=== PATIENT | male | born 1995 | race Caucasian/White ===

== ENCOUNTER 2018-01-19 19:00 | Emergency (ER) | payer OTHER ==
[~2018-01-19] VITALS: Ht 177.8 cm; Wt 104.3 kg
[~2018-01-19 19:00] MED LIST: KEFLEX250 MG PO; KENALOG0.1% TP; MEDROL DOSEPAK4 MG PO; MOTRIN800 MG PO; VISTARIL25 MG PO
[2018-01-19 19:02] VITALS: BP 169/103
[2018-01-19] MEDS ORDERED: Tobrex Ophth S2.5 ML OPH (20:00)
== END 2018-01-19 20:02 | disposition home or self-care (01) ==
LOC: ED 19:00
DX: S05.01XA Injury of conjunctiva and corneal abrasion without foreign body, right eye, initial encounter (principal); H11.31 Conjunctival hemorrhage, right eye; X58.XXXA Exposure to other specified factors, initial encounter; Y93.89 Activity, other specified; Y92.89 Other specified places as the place of occurrence of the external cause; Y99.9 Unspecified external cause status

== ENCOUNTER 2022-07-13 03:54 | Emergency (ER) | payer BC ==
[~2022-07-13] VITALS: Ht 175.2 cm; Wt 113.4 kg
[~2022-07-13 03:54] MED LIST changes: +CIPRO500 MG PO; +FLOMAX0.4 MG PO; +IBUPROFEN600 MG PO; +METOPROLOL SUCC25 M2 PO; +NORCO 5-325 TA1 EACH PO; +Tobrex Ophth S2.5 ML OPH
[2022-07-13 04:09] VITALS: BP 186/92
== END 2022-07-13 05:05 | disposition home or self-care (01) ==
LOC: ED 03:54
DX: K02.9 Dental caries, unspecified (principal); J45.909 Unspecified asthma, uncomplicated; F10.90 Alcohol use, unspecified, uncomplicated

== ENCOUNTER 2024-01-10 06:08 | Emergency (ER) | payer OTHER ==
[~2024-01-10] VITALS: Ht 175.2 cm; Wt 117.9 kg
[2024-01-10 06:24] VITALS: BP 153/96
[2024-01-10] MEDS ORDERED: Tamsulosin Hydrochloride 0.4 MG CAP PO ONE (06:40)
[2024-01-10] MEDS ORDERED: FLOMAX0.4 MG PO ×2 (06:40→12:10)
[2024-01-10] MEDS ORDERED: Ketorolac Tromethamine 30 MG/ML VIAL IV ONE (06:40)
[2024-01-10] MEDS ORDERED: HYDROCODONE-AC1 EAC1 PO (06:40)
[2024-01-10] MEDS ORDERED: Ondansetron4 MG PO ×2 (06:40→12:10)
[2024-01-10] MEDS ORDERED: Ondansetron Hydrochloride 4 MG/2 ML VIAL IV ONE (06:40)
== END 2024-01-10 07:00 | disposition home or self-care (01) ==
LOC: ED 06:08
DX: N20.2 Calculus of kidney with calculus of ureter (principal); J45.909 Unspecified asthma, uncomplicated; Z87.442 Personal history of urinary calculi; Z79.899 Other long term (current) drug therapy; Z79.2 Long term (current) use of antibiotics

== ENCOUNTER → 2024-11-15 | Outpatient (CLI) | payer OTHER ==
[~2024-11-15] MED LIST changes: +HYDROCODONE-AC1 EAC1 PO; +Ondansetron4 MG PO
== END | disposition home or self-care (01) ==
LOC: US 09:30
PROVIDERS: ATTEND Internal Medicine
DX: K76.0 Fatty (change of) liver, not elsewhere classified (principal); N20.0 Calculus of kidney; R10.33 Periumbilical pain